=== PATIENT | female | born 1970 ===

== ENCOUNTER 2018-01-04 05:12 | Inpatient (IN) | payer OTHER ==
[2018-01-04] VITALS (13 sets, daily range): BP systolic 81–130; BP diastolic 46–86
[~2018-01-04] VITALS: Ht 152.4 cm; Wt 72.6 kg
[~2018-01-04 05:12] MED LIST: NKM
[2018-01-04] MEDS ORDERED: Vancomycin 1gm inj IVPB ONE ×2 (06:31→07:00)
[2018-01-04] MEDS ORDERED: Thrombin 5000 units TOPIC ONE ×2 (06:32→07:00)
[2018-01-04] MEDS ORDERED: Gelfoam Absorbable 1gm powder pkt TOPIC ONE (06:32)
[2018-01-04] MEDS ORDERED: Bupivacaine 0.5% Inj 30 ml vial INJ ONE ×3 (06:32→13:36)
[2018-01-04] MEDS ORDERED: Bacitracin 50000 Units Vial ONE (06:32)
[2018-01-04] MEDS ORDERED: Gelfoam Size TOPIC ONE ×2 (06:32→07:00)
--- NOTE | 2018-01-04 06:32 | Anethesia Preoperative Eval ---
Anesthesia Pre-op PMH/ROS General Date of Evaluation: Jan 04, 2018 Anesthesiologist: Jg ASA Score: ASA 1 Mallampati Score Class I : Soft palate, uvula, fauces, pillars visible Class II: Soft palate, uvula, fauces visible Class III: Soft palate, base of uvula visible Class IV: Only hard plate visible Mallampati Classification: Class I Surgeon: Rose Diagnosis: LUmbar disc herniation Surgical Procedure: ALIF L4-5, posterior pedicle screw fixation Anesthesia History: none Family History: no anesthesia problems Allergies: Coded Allergies: No Known Allergies (Unverified , 01/02/18) Medications: see eMAR Past Medical History Cardiovascular: Denies: HTN, CAD, NH, valve dz, arrhythmia, other Pulmonary: Denies: asthma, COPD, EMILY, other Gastrointestinal/Genitourinary: Denies: GERD, CRI, ESRD, other Neurologic/Psychiatric: Denies: dementia, CVA, depression/anxiety, TIA, other Endocrine: Denies: DM, hypothyroidism, steroids, other HEENT: Denies: cataract (L), cataract (R), glaucoma, [place] (L), [place] (R), other Hematology/Immune: Denies: anemia, DVT, bleeding disorder, other Musculoskeletal/Integumentary: Denies: OA, RA, DJD, DDD, edema, other PSxH Narrative: Denies Anesthesia Pre-op Phys. Exam Physician Exam Last Vital Signs Date Time Temp Pulse Resp B/P (MAP) Pulse Ox O2 Delivery O2 Flow Rate FiO2 01/04/18 05:58 Room Air 01/04/18 05:51 98.2 59 18 98/66 (77) 99 98.2 Constitutional: NAD Cardiovascular: RRR Respiratory: CTA Airway Exam Mallampati Score: Class I MO: full ROM: full Anesthesia Pre-op A/P Labs see chart Urine Test Test 01/04/18 05:20 Urine HCG, Qualitative Negative (NEGATIVE) Studies Pre-op Studies: EKG - sr Risk Assessment & Plan Assessment: ASA I Plan: GA Status Change Before Surgery: No Pre-Antibiotics Drug: Ancef 2g Given Within 1 Hr of Incision: Yes Time Given: 07:30 Yoko Avila MD Jan 04, 2018 06:32
[2018-01-04] MEDS ORDERED: Sugammadex Sodium 200mg/2ml vial IV ONE (06:37)
[2018-01-04] MEDS ORDERED: Zemuron 50mg/5ml Inj IV ONE (06:38)
[2018-01-04] MEDS ORDERED: fentaNYL 100 mcg/2 mL IV ONE (06:45)
[2018-01-04] MEDS ORDERED: Propofol 200mg/20ml IV ONE ×3 (06:45→13:06)
[2018-01-04] MEDS ORDERED: Midazolam 2mg/2ml Inj ONE (06:45)
[2018-01-04] MEDS ORDERED: Lidocaine 1% MPF 10mg/ml 5ml ONE (06:45)
[2018-01-04] MEDS ORDERED: Bacitracin 50000 Units Vial IRRIG ONE (07:00)
[2018-01-04] MEDS ORDERED: Propofol 1,000mg/ 100ml btl IV ONE (07:00)
[2018-01-04] MEDS ORDERED: Sterile Water For Irrig 2000ml IRRIG ONE (07:00)
[2018-01-04] MEDS ORDERED: Heparin 5000 units/ml inj IV ONE (07:00)
[2018-01-04] MEDS ORDERED: ceFAZolin sod 2 GM in D5W 110 ML IVPB ONE (07:00)
[2018-01-04] MEDS ORDERED: NS Irrig 1000ml ONE (07:00)
[2018-01-04] MEDS ORDERED: Sterile Water Irrig 1000ml IRRIG ONE (07:00)
[2018-01-04] MEDS ORDERED: NS 500ML ONE (07:00)
[2018-01-04] MEDS ORDERED: LR 1000ml ONE (07:00)
[2018-01-04] MEDS ORDERED: Heparin 1000 units/ml 1ml Vial ONE (07:03)
[2018-01-04] MEDS ORDERED: Heparin 5000 units/ml inj ONE (07:04)
--- NOTE | 2018-01-04 07:31 | Pre-Procedure Note/Attestation ---
Pre-Procedure Note/Attestation Complete Prior to Procedure Planned Procedure: not applicable Procedure Narrative: Stage 1 Anterior Lumbar Interbody Fusion L45 with bmp and Stage 2 Posterior melara laminectomy pedicle screw fixation of L45 Indications for Procedure Pre-Operative Diagnosis: L45 spondylolisthesis with instability Attestation I attest that I discussed the nature of the procedure; its benefits; risks and complications; and alternatives (and the risks and benefits of such alternatives ), prior to the procedure, with the patient (or the patient's legal ict sales representative). I attest that, if there was a reasonable possibility of needing a blood transfusion, the patient (or the patient's legal ict sales representative) was given the [place] [facility] [employer] [facility] standardized written summary, pursuant to the Umesh Jesus Alberto Blood Safety Act ([place] Health and Safety Code # 1645, as amended). I attest that I re-evaluated the patient just prior to the surgery and that there has been no change in the patient's H&P, except as documented below: Rell Lazo MD Jan 04, 2018 07:30
--- NOTE | 2018-01-04 07:32 | Brief Operative Note ---
Immediate Post Operative Note Operative Note Chief Complaint: Left leg pain and back pain Pre-op Diagnosis: L45 spondylolisthesis with instability Procedure: Stage 1 Anterior Lumbar Interbody Fusion L45 with bmp and Stage 2 Posterior melara laminectomy pedicle screw fixation of L45 Post-op Diagnosis: same as pre-op Findings: consistent w/pre-op dx studies Surgeon: Violet Tribal Delegate: Alejandra Anesthesiologist: Jg Anesthesia: general Specimen: none Complications: none Condition: stable Fluids: IVF Estimated Blood Loss: minimal Drains: none Implant(s) used?: Yes - Nuvasive 14mm Peek, screwsx4 6x40mm Rell Lazo MD Jan 04, 2018 07:32
[2018-01-04] MEDS ORDERED: HYDROcodone/Acetamin 7.5/325 tab ORAL PRN ×2 (07:45)
[2018-01-04] MEDS ORDERED: HYDROmorphone 1mg/ml Carpuject IVP PRN (07:45)
[2018-01-04] MEDS ORDERED: Morphine Sulfate 2mg/ml Inj IV PRN (07:45)
[2018-01-04] MEDS ORDERED: Naloxone 0.4mg/ml Inj IVP PRN (07:45)
[2018-01-04] MEDS ORDERED: Chloraseptic Spray 20mL Bottle ORAL PRN (07:45)
[2018-01-04] MEDS ORDERED: Morphine Sulfate 4mg/ml Inj (IV USE ONLY) IV PRN ×2 (07:45)
[2018-01-04] MEDS ORDERED: Milk of Magnesia 30ml Ud ORAL PRN (07:45)
[2018-01-04] MEDS ORDERED: Norco 5mg/325mg tab ORAL PRN (07:45)
[2018-01-04] MEDS ORDERED: Metoclopramide 10mg/2ml Inj IVP PRN (07:45)
[2018-01-04] MEDS ORDERED: LR 1000ml 1,000 ML IVLG SCH (08:10)
[2018-01-04] MEDS ORDERED: Labetalol 5mg/ml 20ml vial IV PRN (08:15)
[2018-01-04] MEDS ORDERED: fentaNYL 100 mcg/2 mL IV PRN (08:15)
[2018-01-04] MEDS ORDERED: LORazepam Inj 2mg/ml 1ml IV PRN (08:15)
[2018-01-04] MEDS ORDERED: Midazolam 2mg/2ml Inj IVP PRN (08:15)
[2018-01-04] MEDS ORDERED: DiphenhydrAMINE 50mg/ml Inj IVP PRN (08:15)
[2018-01-04] MEDS ORDERED: Hydromorphone 0.5mg/0.5ml inj IVP PRN (08:15)
--- NOTE | 2018-01-04 14:09 | Immediate Post-Op Evaluation ---
Immediate Post-Op Evalulation Immediate Post-Op Evalulation Procedure: ALIF L4-5 Date of Evaluation: Jan 04, 2018 Time of Evaluation: 14:05 IV Fluids: 2.1L Blood Products: 0 Estimated Blood Loss: 50 Urinary Output: 0 Blood Pressure Systolic: 81 Blood Pressure Diastolic: 46 Pulse Rate: 78 Respiratory Rate: 18 O2 Sat by Pulse Oximetry: 100 Temperature (Fahrenheit): 97 Pain Score (1-10): 0 Nausea: No Vomiting: No Complications 0 Patient Status: awake, reacts, patent, none Hydration Status: adequate Drug: Ancef 2g Given Within 1 Hr of Incision: Yes Time Given: 07:30 Yoko Avila MD Jan 04, 2018 14:09
[2018-01-04] MEDS: NS w/KCl 20mEq 1,000 ML IV SCH (16:17)
[2018-01-04] MEDS: ceFAZolin sod 1 GM in D5W 55 ML IV SCH (16:18)
--- NOTE | 2018-01-04 16:38 | Diagnostic Imaging Report ---
Indication: Intraoperative imaging. L4-5 fusion Comparison: None Findings: 5 fluoroscopic of the lumbar spine were obtained. Localization image showing localization of the L4-5 disc anteriorly. Subsequent image showing fusion at L4-5 both anterior screws and posterior acoustical screws fusion rods noted. IMPRESSION: Intraoperative imaging
--- NOTE | 2018-01-04 17:15 | Operative Note - Dictated ---
DATE OF OPERATION: 01/04/2018 SURGEONS: 1. Lavon Roberts M.D. (for the approach). 2. Rell Lazo M.D. (for the spine procedure). ANESTHESIOLOGIST: Yoko Gregorio M.D. ANESTHESIA: General endotracheal. PREOPERATIVE DIAGNOSIS: Disc disease L4-L5 (1 interspace). POSTOPERATIVE DIAGNOSIS: Disc disease L4-L5 (1 interspace). OPERATIVE PROCEDURES: 1. Muscle sparing anterior abdominal extraperitoneal approach for anterior lumbar interbody fusion, L4-L5 (1 interspace). 2. Mobilization of left iliac artery and aorta. 3. Mobilization of left iliac vein. 4. Ligation of iliolumbar vein. 5. Exposure of the anterior surface of the spine at L4-L5 (1 interspace). INFORMED CONSENT: The procedure of anterior access for an anterior lumbar interbody fusion was explained in detail to the patient preoperatively by myself and Dr. Lazo. The risks including hemorrhage, infection, vascular injury, ureteral injury, nerve injury, visceral injury, and lymphedema were explained in detail. The patient stated that she understood the procedure, its rationale, and risks. She stated that she had no further questions and accepted the procedures as outlined above. BACKGROUND INFORMATION: Indications for surgery, description of operative findings, and specimens removed will be contained in Dr. Lazo's operative report. OPERATIVE FINDINGS PERTINENT TO THE APPROACH: All retroperitoneal structures were normal. OPERATIVE PROCEDURE: The patient was brought to the operating room in stable condition. Monitoring was instituted with arterial line, ECG, O2 saturation monitor, and blood pressure cuff. A pulse oximeter was placed on the left foot to monitor circulation to the left lower extremity. The patient was induced with anesthesia without difficulty. The patient was prepared and draped in sterile fashion. Using x-ray and fluoroscopy, the appropriate level for L4-L5 was marked down the skin. A left transverse incision was made just below the level of the umbilicus going from the midline to the edge of the left rectus muscle. The incision was carried down through the subcutaneous tissue to the rectus fascia. The rectus fascia was incised with the cautery with extension into the fibers of the external oblique aponeurosis. Elevation of the rectus fascia away from the anterior surface of the muscle was carried out for a distance of approximately 5 cm caudad and cephalad. This allowed for retraction of the rectus muscle both medially and laterally in order to obtain direct A-P access to the spine. The inferior epigastric vessels were identified and preserved. The posterior rectus sheath was incised for approximately 1 to 2 cm and carefully from the peritoneum, taking care not to enter the peritoneal cavity. The peritoneum was bluntly dissected away from the undersurface of the internal oblique muscle. Careful blunt dissection was used to elevate the peritoneum anteriorly until the psoas muscle was identified. The ureter was also identified and swept upwards with the peritoneum and its contents. Further dissection was used to expose the anterior surface of the left common iliac artery. A Abdalla retractor was placed into the retroperitoneum lateral to the rectus muscle. A lap sponge was inserted over the psoas muscle and pushed superiorly to keep the abdominal contents out of the way with the Mt retractor. Careful sharp and blunt dissection was used to expose the entire length of the common iliac artery to its origin at the aortic bifurcation. Exposure of the L4-L5 disc was carried out as follows: Dissection along the lateral wall of the artery was carried out to expose the lateral border of the left common iliac vein, which lies under and slightly to the right of the artery. With extreme care, the left iliac vein was exposed in its entirety and deep dissection carried out to expose the iliolumbar vein. The iliolumbar vein was carefully doubly ligated proximally and distally and transected. Any other venous tributaries in the area were controlled with cautery. This allowed for mobilization of the iliac vessels and aorta anteriorly and to the right, to allow proper visualization of the anterior surface of the spine at L4-L5. This was done with careful blunt dissection in order to peel away the common iliac vein from the anterior longitudinal ligament to which it is very closely approximated. After skeletonizing the iliac vessels all the way to the aortic bifurcation, a malleable retractor was placed under the vein and artery in order to elevate the vessels anteriorly together with the aorta. Careful dissection along the anterior surface of the spine was carried out to preserve the sympathetic chain laterally, as well as, the sympathetic plexus, which lies anteriorly overlying the aortic bifurcation. Further careful sharp and blunt dissection was carried out to expose the anterior surface of the spine at L4-L5 disc space all the way to its right lateral surface. Any segmental vessels lying along the anterior surface of the affected vertebral bodies were transected between clips and/or cauterized in order to adequately elevate the aorta from the anterior surface of the spine. The psoas muscle was from the lateral border of the spine, on the left, using blunt dissection. Use of the electrocautery was kept to a minimum in this area to avoid injury to the sympathetic fibers. After proper skeletonization and mobilization of the vessels and preservation of all vital structures, the exposure was complete and the Abdalla-Mt retractor combination was removed and the table-held retractor system deployed. The retractor blades were placed for exposure of the L4-L5 disc as follows. First, retractor blade was slipped under the vessels and it's lipped tip brought to the right side of the spine. It was used to elevate the vessels away from the anterior surface of the spine. This allowed exposure and direct A-P approach to the anterior surface of the spine. Another retractor blade was placed on the left side of the spine to complete the approach. Additional retractor blades were placed superiorly and inferiorly. The needle was placed to identify the midline and the appropriate level under fluoroscopy. Dr. Lazo proceeded to perform the diskectomy, partial vertebrectomy, and fusion using the appropriate technique and hardware. After the diskectomy and fusion was completed, irrigation with antibiotic solution was carried out. The integrity of the iliac vessels was checked to make sure that there was no tear or thrombosis of the vein and that there was adequate flow through the artery with no evidence of spasm or thrombosis. A further check for hemostasis was made and the integrity of the ureter was verified. The peritoneum was allowed to return to its anatomic position. The anterior rectus sheath was closed with a continuous suture of #1 Vicryl. The continuous subcuticular/subdermal suture of 2-0 Vicryl was used to approximate subcutaneous tissue and skin. Steri-Strips and a sterile dressing were applied. The patient remained in the operating room, in stable condition, under anesthesia, and prepared for the posterior portion of the procedure. There were excellent dorsalis pedis and posterior tibial pulses in both feet. The left foot oxygen saturation monitor showed a triphasic waveform with 100% saturation, consistent with the preoperative baseline. Estimated blood loss was minimal and approximately 25 mL. Final sponge, needle, and instrument counts were verified as correct x2. Manual and visual sweeps were correct. Lavon Roberts M.D. DR: SUGEY JOB#: [id number] CC: Rell Lazo M.D.; Fax#: [phone]
[2018-01-04] MEDS: Docusate 100mg cap ORAL SCH (17:41)
[2018-01-04] MEDS: Dexamethasone 4mg/ml vial IVP SCH (17:41)
[2018-01-05] VITALS: BP 110/71
[2018-01-05] MEDS: ceFAZolin sod 1 GM in D5W 55 ML IV SCH ×2 (00:04→08:16)
[2018-01-05] MEDS: Dexamethasone 4mg/ml vial IVP SCH ×3 (00:04→12:11)
[2018-01-05] MEDS: NS w/KCl 20mEq 1,000 ML IV SCH (02:36)
[2018-01-05 04:00] VITALS: BP 104/70
[2018-01-05 08:00] VITALS: BP 106/70
[2018-01-05] MEDS: Docusate 100mg cap ORAL SCH ×2 (08:16→18:08)
--- NOTE | 2018-01-05 10:06 | General Progress Note ---
Assessment/Plan Assessment/Plan L45 spondylolisthesis with instability Stage 1 Anterior Lumbar Interbody Fusion L45 with bmp and Stage 2 Posterior melara laminectomy pedicle screw fixation of L45 PLAN 1. incentive spirometry 2. SCD 3. PT evaluation and therapy 4. Hydration 5. Pain management 6. discharge once stable with outpatient follow up Subjective Date patient seen: Jan 04, 2018 Allergies: Coded Allergies: No Known Allergies (Unverified , 01/02/18) Subjective late entry Objective Last 24 Hour Vital Signs Date Time Temp Pulse Resp B/P (MAP) Pulse Ox O2 Delivery O2 Flow Rate FiO2 01/04/18 15:15 97.2 80 19 120/82 (95) 100 97.2 01/04/18 15:10 71 15 104/73 100 Nasal Cannula 3 01/04/18 15:00 97.3 72 17 102/62 100 Nasal Cannula 3 97.3 01/04/18 14:50 79 15 99/71 100 Nasal Cannula 3 01/04/18 14:45 74 17 108/75 100 Simple Mask 6 01/04/18 14:30 74 16 103/73 100 Simple Mask 6 01/04/18 14:20 74 16 94/64 100 Simple Mask 6 01/04/18 14:10 71 16 90/58 100 Simple Mask 6 01/04/18 14:09 206.6 78 18 100 01/04/18 14:05 76 16 84/54 100 Simple Mask 6 01/04/18 14:00 97 78 17 81/46 100 Simple Mask 6 97.0 Intake and Output 01/04/18 01/05/18 19:00 07:00 Intake Total 3185 ml Output Total 875 ml Balance 2310 ml Intake Oral 180 ml IV Total 3005 ml Output Urine Total 825 ml Estimated Blood Loss 50 ml Height (Feet): 5 Height (Inches): 0.00 Weight (Pounds): 160 Suhail Villa MD Jan 05, 2018 10:06
--- NOTE | 2018-01-05 10:07 | General Progress Note ---
Assessment/Plan Assessment/Plan L45 spondylolisthesis with instability Stage 1 Anterior Lumbar Interbody Fusion L45 with bmp and Stage 2 Posterior melara laminectomy pedicle screw fixation of L45 PLAN 1. incentive spirometry 2. SCD 3. PT evaluation and therapy 4. Hydration 5. Pain management 6. discharge today if stable Subjective Allergies: Coded Allergies: No Known Allergies (Unverified , 01/02/18) Subjective doing well awaiting PT Objective Last 24 Hour Vital Signs Date Time Temp Pulse Resp B/P (MAP) Pulse Ox O2 Delivery O2 Flow Rate FiO2 01/05/18 09:00 Nasal Cannula 2.0 01/05/18 08:00 98.9 77 20 106/70 (82) 98 98.9 01/05/18 04:00 97.9 71 16 104/70 (81) 100 97.9 01/05/18 00:00 97.8 71 18 110/71 (84) 100 97.8 01/04/18 21:00 Nasal Cannula 2.0 01/04/18 20:00 97.2 69 15 118/76 (90) 99 97.2 01/04/18 16:15 98.1 71 20 130/86 (101) 100 98.1 01/04/18 15:28 Nasal Cannula 2.0 01/04/18 15:15 97.2 80 19 120/82 (95) 100 97.2 01/04/18 15:10 71 15 104/73 100 Nasal Cannula 3 01/04/18 15:00 97.3 72 17 102/62 100 Nasal Cannula 3 97.3 01/04/18 14:50 79 15 99/71 100 Nasal Cannula 3 01/04/18 14:45 74 17 108/75 100 Simple Mask 6 01/04/18 14:30 74 16 103/73 100 Simple Mask 6 01/04/18 14:20 74 16 94/64 100 Simple Mask 6 01/04/18 14:10 71 16 90/58 100 Simple Mask 6 01/04/18 14:09 206.6 78 18 100 01/04/18 14:05 76 16 84/54 100 Simple Mask 6 01/04/18 14:00 97 78 17 81/46 100 Simple Mask 6 97.0 Intake and Output 01/04/18 01/05/18 19:00 07:00 Intake Total 3185 ml Output Total 875 ml Balance 2310 ml Intake Oral 180 ml IV Total 3005 ml Output Urine Total 825 ml Estimated Blood Loss 50 ml Height (Feet): 5 Height (Inches): 0.00 Weight (Pounds): 160 Objective WDWN NAD clear breath sounds bilaterally without rhonchi or wheeze [id number] without MRG NABS nontender no HSM no CCE nonfocal Suhail Villa MD Jan 05, 2018 10:07
[2018-01-05 12:00] VITALS: BP 105/65
[2018-01-05 16:00] VITALS: BP 95/63
[2018-01-05 18:14] VITALS: BP 100/63
[2018-01-05] MEDS ORDERED: NORCO 10-325 T1 EACH ORAL (18:17)
[2018-01-05] MEDS ORDERED: SOMA350 MG PO (18:17)
[2018-01-05] MEDS ORDERED: Tubing IV Secondary IV ONE (19:03)
--- NOTE | 2018-01-05 21:30 | Discharge Summary ---
DATE OF ADMISSION: 01/04/2018 DATE OF DISCHARGE: 01/05/2018 PROCEDURE PERFORMED DURING ADMISSION: Anterior and posterior lumbar fusion at L4-L5. REASON FOR ADMISSION: L4-L5 spondylolisthesis and left-sided leg pain and radiculopathy. HOSPITAL COURSE/TREATMENT RENDERED: DISCHARGE PHYSICAL EXAM: 1. The patient was ambulating with and without the assistance of physical therapy. 2. Prior to discharge home incision was clean and dry with minimal swelling. 3. Follows commands. 4. Alert and oriented. 5. Weller discontinued, voiding. 6. Incentive spirometer at bedside. 7. IVF hep locked. MOTOR: Demonstrates expected postoperative bulk and tone. Moves biceps, triceps, and deltoid musculature on command. Moves hip flexors, quadriceps, tibialis anterior, EHL, gastrocsoleus musculature on command as well. TREATMENT RENDERED: 1. Daily nursing care. 2. Physical Therapy. 3. Occupational Therapy. 4. Intravenous medications. 5. Oral medications. 6. Daily postoperative examinations by Spine surgery team. CONDITION OF PATIENT ON DISCHARGE: The condition on discharge is stable for discharge to home. DISCHARGE INSTRUCTIONS: Our specific instructions relating to physical activity, medications diet and follow-up care are detailed in our standard operative folder and were given to this patient prior to surgery. We will however summarize these briefly as stated below. Regarding physical activity we would like the patient to limit their flexion, extension and rotation. We also require a limitation on their bending lifting and twisting. All medication has been called in prior to surgery to their pharmacy of choice. They can resume their regular diet once tolerated. We would like them to shower and limit soaking the wound in a tub/Jacuzzi/the ocean for a period of one month or until the incision is completely healed. We will have them follow up in our office in three weeks time for their regularly scheduled appointment. They understand to call our office tomorrow to schedule the time for their three week followup appointment. The patient will notify us should they experience any increase in the severity of pain, redness/swelling/ or drainage from their incision. Rell Lazo M.D. DR: OLLIE/RICKY JOB#: [id number] CC:
--- NOTE | 2018-01-05 23:15 | Operative Note - Dictated ---
DATE OF OPERATION: 01/04/2018 Stage 1 of 2. SURGEON: Rell Lazo M.D., Orthopaedic Spine Surgeon. GRIDDLE COOK SURGEON: Lavon Roberts M.D. ANESTHESIA: General endotracheal anesthesia. PREOPERATIVE DIAGNOSES: 1. Intractable back pain. 2. Intractable leg pain. 3. Worsening radiculopathy. 4. Weakness. 5. Herniated nucleus pulposus, L4-L5 herniation. 6. Neural foraminal stenosis, L4-L5 herniation. POSTOPERATIVE DIAGNOSES: 1. Intractable back pain. 2. Intractable leg pain. 3. Worsening radiculopathy. 4. Weakness. 5. Herniated nucleus pulposus, L4-L5 herniation. 6. Neural foraminal stenosis, L4-L5 herniation. PROCEDURES PERFORMED: 1. Radical anterior lumbar intervertebral L4-L5 discectomy. 2. Anterior lumbar interbody fusion using NuVasive PEEK cage size #14 mm and medium bone morphogenetic protein with allograft [place] bone 5 mL. 3. Anterior lumbar plating and fixation at L4-L5 using #4 screws of 25 mm length. 4. Anterior retroperitoneal exposure. 5. Supervision and interpretation of intraoperative fluoroscopy. 6. Supervision and interpretation of somatosensory-evoked potential and free-running EMG monitoring. ESTIMATED BLOOD LOSS: 250 mL. COMPLICATIONS: None. INDICATIONS FOR THE PROCEDURE: The patient is a 47-year-old female, who presents for intractable back pain and radiculopathy which is well documented in our clinical chart and records. We had a long discussion with the patient regarding definitive surgical treatment options. We had a long discussion with the patient regarding the risks, alternatives, and benefits of procedure. Our description of the risks included a discussion in person as well as a signed consent which detailed all pertinent risks and the procedure itself. Briefly, our discussion included but was not limited to infection, bleeding, pseudarthrosis, spinal cord injury, neurovascular injury, dural tear, CSF leak, neuropathy, paralysis, permanent weakness/drop foot, paresthesias, blindness, palsy, and weakness. The patient understood there may be a need for revision surgery or additional procedures. Approach-related complications including dysphonia, dysphagia, blindness, permanent vocal cord and neural injury, hematoma, swallowing and breathing difficulty; medical complications including liver, kidney, shock, and cardiopulmonary failure; anesthesia complications including , swelling, damage to the musculature, larynx , esophagus, trachea, blood vessels and muscles and lungs during this surgical procedure. Injury to deeper structures may be temporary or permanent. The patient understood these and elected to proceed. A written and verbal consent was given. We discussed the pros and cons of all the alternatives. We discussed the uncertainties associated with the decision. Afterwards I assessed the patients understanding and explored their preferences. All questions were answered and no guarantees were given. Medical clearance was obtained prior to surgery. OPERATIVE FINDINGS: A broad-based disc herniation at L4-L5 was encountered, which encroached on the thecal sac and neural foraminal elements therein. This L4-L5 disc was acute in nature and not calcified. It was mobile and free-floating and resected easily. There was also neural foraminal stenosis at L4-L5. DESCRIPTION OF PROCEDURE: Under the benefit of general endotracheal anesthesia and with the assistance of the entire operative team, the patient was moved from the rney onto the operative table in the supine position on a radiolucent frame. The head was secured and positioned appropriately. Bilateral arms were secured with Gel Pads and foam and all bony prominences were padded. The bilateral lower extremity SCD and JOSE hose were placed for DVT prophylaxis. A surgical timeout was called which corroborated our planned procedure. Preoperative antibiotics were administered within 30 minutes of the incision for prophylaxis. Using lateral radiography, the operative levels were delineated. An incision was marked based on our interpretation of lateral radiography and afterwards the body was prepped and draped in the usual sterile manner. The family was notified that we were ready to commence surgery and were called in the waiting room hourly for updates. An incision was based on our lateral fluoroscopic image to center the incision at the L4-L5 interspace. The wound was prepped and draped in the usual sterile fashion. Using a scalpel, a standard retroperitoneal exposure was performed by our vascular surgeon, and this was delineated in a separate operative note. After appropriate exposure at the L4-L5 disc space, we next turned our attention towards our radical discectomy. This was performed in standard fashion first beginning with a gentle mobilization of all superficial soft tissue overlying the disc space with Kittners. After this was performed, we marked our midline and confirmed our disc space on AP and lateral fluoroscopy. Next, using a #10 blade long-handled scalpel, the disc was resected from the endplates in a box discectomy technique. Next using Hassan elevators, the disc was mobilized off each endplate. After this, using a large Leksell rongeur, the entire disc was removed from the intervertebral space. All residual disc and cartilaginous endplates were resected using a combination of small and medium curettage, pituitaries, size 4 and size 6 Kerrison rongeurs. Next, the endplates were distracted in a parallel fashion using the Flako machine finisher and a 7.5 Thandle. At this point, the PLL was resected using a small curette and a Kerrison 4 rongeur. Next, the endplates were resected down to bleeding subchondral bone using a ring and box curette. For any residual bleeding which we encountered at this point, this was maintained and controlled with a combination of FloSeal, Gelfoam, and bipolar cautery. Afterwards, Tisseel was used to seal the discectomy site dorsally. Next, I then trialed the interspace for height, width, and depth. This was confirmed on fluoroscopy and, once satisfied with our fit, we loaded and inserted a NuVasive PEEK cage size #14 mm with medium bone morphogenetic protein and with allograft [place] bone 5 mL under AP and lateral fluoroscopy. AP and lateral fluoroscopy confirmed excellent placement at the L4-L5 interspace. Afterwards, we turned our attention towards plating from the Nuvasive Brigade Interlock system. This anterior lumbar plating and fixation at L4-L5 using #4 screws of 25 mm length. Final radiographs confirmed appropriate placement of all hardware, screws, and our PEEK cages along with a baptism of the lumbar lordosis. Afterwards, Tisseel was used to seal the discectomy site ventrally. FloSeal and Zosyn antibiotics were placed directly on the anterior fusion site. The wounds were copiously irrigated with antibiotic-impregnated saline. Afterwards, FloSeal was placed to address residual bleeding. Powdered antibiotics were directly poured into the wound to provide for direct antibiosis. Next, I turned my attention to closure. Fascial closure was performed with 1-0 Vicryl suture. Subcutaneous tissues were reapproximated with 2-0 Vicryl. The superficial subcutaneous skin was closed with a running Monocryl and Dermabond. Dressings consisted of Tegaderm and 4 x 4 gauze. The patient tolerated the procedure well and after discussion with our vascular surgeon and our anesthesiologist, we made the determination to proceed with stage 2 of 2, our posterior-based approach. The details of stage 1 of the surgery were related to the patients family/representatives upon the conclusion of the procedure in the family waiting room. Stage 2 of 2. DATE OF OPERATION: 01/04/2018 SURGEON: Rell Lazo M.D., Orthopaedic Spine Surgeon. GRIDDLE COOK SURGEON: Lavon Roberts M.D. ANESTHESIA: General endotracheal anesthesia. PREOPERATIVE DIAGNOSES: 1. Intractable back pain. 2. Intractable leg pain. 3. Worsening radiculopathy. 4. Weakness. 5. Herniated nucleus pulposus, L4-L5 herniation. 6. Neural foraminal stenosis, L4-L5. POSTOPERATIVE DIAGNOSES: 1. Intractable back pain. 2. Intractable leg pain. 3. Worsening radiculopathy. 4. Weakness. 5. Herniated nucleus pulposus, L4-L5 herniation. 6. Neural foraminal stenosis, L4-L5. PROCEDURES PERFORMED: 1. Left-sided Lynch laminectomy/Cruz-Weber osteotomy, and complete facetectomy at L4-L5. 2. L4-L5 posterolateral fusion using allograft bone, local autograft, and residual bone morphogenetic protein. 3. Percutaneous pedicle screw fixation at L4-L5 using Aesculap screws x4, size 6.0 x 40 mm. 4. Confirmation of pedicle screws placement using neural monitoring. 5. Use of intraoperative microscope. 6. Supervision and interpretation of intraoperative fluoroscopy. 7. Supervision and interpretation of somatosensory-evoked potential and free-running EMG monitoring. ESTIMATED BLOOD LOSS: mL. COMPLICATIONS: None. INDICATIONS FOR THE PROCEDURE: The patient is a 47-year-old female, who presents for stage 2 in regard to their intractable back pain and radiculopathy. This operative note details the second stage of our surgery. Prior to surgery, we had a long discussion with the patient regarding definitive surgical treatment options. We had a long discussion with the patient regarding the risks, alternatives, and benefits of procedure. Our description of the risks included a discussion in person as well as a signed consent which detailed all pertinent risks and the procedure itself. Briefly, our discussion included but was not limited to infection, bleeding, pseudarthrosis, spinal cord injury, neurovascular injury, dural tear, CSF leak, neuropathy, paralysis, permanent weakness/drop foot, paresthesias, blindness, palsy, and weakness. The patient understood there may be a need for revision surgery or additional procedures. Approach-related complications including dysphonia, dysphagia, blindness, permanent vocal cord and neural injury, hematoma, swallowing and breathing difficulty; medical complications including liver, kidney, shock, and cardiopulmonary failure; anesthesia complications including , swelling, damage to the musculature, larynx, esophagus, trachea, blood vessels and muscles and lungs during this surgical procedure. Injury to deeper structures may be temporary or permanent. The patient understood these and elected to proceed. A written and verbal consent was given. We discussed the pros and cons of all the alternatives. We discussed the uncertainties associated with the decision. Afterwards, I assessed the patients understanding and explored their preferences. All questions were answered and no guarantees were given. This now delineates the second stage of the procedure. OPERATIVE FINDINGS: A significant amount of neural foraminal encroachment along the thecal sac and neural foraminal elements therein. This neural foraminal stenosis at L4-L5 was more than appreciated on the MRI. DESCRIPTION OF PROCEDURE: Under the benefit of general endotracheal anesthesia and with the assistance of the entire operative team, the patient was moved from the radiolucent operative table in the prone position onto a Jarad frame. The head was secured and positioned appropriately. Bilateral arms were secured with Gel Pads and foam and all bony prominences were padded. The bilateral lower extremity SCD and JOSE hose were placed for DVT prophylaxis. A surgical timeout was called which corroborated our planned procedure. Preoperative antibiotics were administered within 30 minutes of the incision for prophylaxis. Using lateral radiography, the operative levels were delineated. An incision was marked based on our interpretation of anterior, posterior, and lateral radiography and afterwards the body was prepped and draped in the usual sterile manner. The family was notified that we were ready to commence surgery and were called in the waiting room hourly for updates. An incision was based on our anterior, posterior, and lateral fluoroscopic image to center the incision at the L4-L5 interspace. The wound was prepped and draped in the usual sterile fashion. Using a scalpel, a midline incision was made and the subcutaneous tissue was mobilized so that within the fascia two Anushka-based incisions were made, one incision on the left side focusing on her pedicle at L4-L5 through a percutaneous stab wound approach. All pedicles were cannulated in the exact same fashion for each level. This was performed in the following manner. The second incision was made slightly off midline and geared towards her L4-L5 interspace approached. Using Jamshidi needles under direct AP and lateral fluoroscopic visualization, I approached the L4-L5 pedicles with Jamshidi needles making sure to leave clearance along the medial pedicle boundary/wall, and next we advanced our bilateral pedicle screw entry points under AP and lateral fluoroscopy at both our pedicles bilaterally. Next, percutaneous screws were loaded on the right-hand side and on the contralateral side, left. Screws were inserted in percutaneous fashion and afterwards these screws were stimulated. Next, a rufus was lordosed and placed percutaneously through the incision. Next, we turned our attention to our Cruz-Weber type osteotomy, facetectomy, and decompression. This was performed at each level in the exact same fashion. Based on AP and lateral fluoroscopy, we centered this incision over the facet joints at L4-L5 of the contralateral side. This was taken down through the skin and subcutaneous tissues until the overlying pars facet joints of L4-L5 were visualized under microscopic visualization. There was severe pressure on this neural foramina as palpated with the [place] dental and a Borrero ball probe. The pars was then visualized on the contralateral side and this was carefully resected along with the lamina and superior articular process using a [employer] Royal AM8 drill bit. This was completely resected using a Cruz-Weber type osteotomy and medial laminar removal and facetectomy. There was a significant amount of bleeding which we encountered at this point and this was maintained and controlled with a combination of FloSeal, Gelfoam, and bipolar cautery. After complete resection of the facet joints, we noticed the lateral thecal sac margin and the neural elements. Next, I turned my attention to the stimulation of pedicle screws. All pedicle screws were stimulated with somatosensory-evoked potentials ranging over 20 milliampere with no response. Afterwards percutaneous rods from the pedicle screw system were inserted and placed percutaneously and locking caps were placed. Final radiographs confirmed appropriate placement of all hardware, screws, and our PEEK cages along with a baptism of the lumbar lordosis. The wounds were copiously irrigated with antibiotic-impregnated saline. Afterwards, FloSeal was placed to address residual bleeding. Powdered antibiotics were directly poured into the wound to provide for direct antibiosis. Next, I turned my attention to closure. Fascial closure was performed with 1-0 Vicryl suture. Subcutaneous tissues were reapproximated with 2-0 Vicryl. The superficial subcutaneous skin was closed with a running Monocryl and Dermabond. Dressings consisted of Tegaderm and 4 x 4 gauze. The patient tolerated the procedure well and will now be admitted to the spine floor for further observation. The details of the entire surgery were related to the patients family/representatives upon the conclusion of the procedure in the family waiting room. Rell Lazo M.D. DR: TOMMY JOB#: [id number] CC:
[2018-01-06 18:16] VITALS: BP 100/63
--- NOTE | 2018-01-06 18:16 | 48 Hour Post Anesthesia Eval ---
Post Anesthesia Evaluation Procedure: ALIF L4-5 Date of Evaluation: Jan 06, 2018 Time of Evaluation: 18:16 Blood Pressure Systolic: 100 0: 63 Pulse Rate: 64 Respiratory Rate: 14 O2 Sat by Pulse Oximetry: 99 Airway: patent Nausea: No Vomiting: No Hydration Status: adequate Cardiopulmonary Status: stable Mental Status/LOC: patient returned to baseline Follow-up Care/Observations: na Post-Anesthesia Complications: none Follow-up care needed: N/A Bonny Rose CRNA Jan 06, 2018 18:16
== END 2018-01-05 19:04 | disposition home or self-care (01) | DRG 455 ==
LOC: SDSOVERFLO 05:12 → 3E 15:32
PROC: 0SG00A0 Fusion of Lumbar Vertebral Joint with Interbody Fusion Device, Anterior Approach, Anterior Column, Open Approach (ICD-10-PCS; principal; 2018-01-04 07:00)
PROC: 3E0U0GB Introduction of Recombinant Bone Morphogenetic Protein into Joints, Open Approach (ICD-10-PCS; principal; 2018-01-04 07:00)
PROC: 4A11X4G Monitoring of Peripheral Nervous Electrical Activity, Intraoperative, External Approach (ICD-10-PCS; principal; 2018-01-04 07:00)
PROC: 0ST20ZZ Resection of Lumbar Vertebral Disc, Open Approach (ICD-10-PCS; principal; 2018-01-04 07:00)
PROC: 0SG0071 Fusion of Lumbar Vertebral Joint with Autologous Tissue Substitute, Posterior Approach, Posterior Column, Open Approach (ICD-10-PCS; principal; 2018-01-04 07:00)
DX: M51.16 Intervertebral disc disorders with radiculopathy, lumbar region (principal); M48.061 Spinal stenosis, lumbar region without neurogenic claudication
CPT/HCPCS: 36415; 72020; 76001; 81025; 86850; 86900; 86901; 87081; 94003; 94150; J2250; J2405; J2765